=== PATIENT | female | born 1990 | race Caucasian/White ===

== ENCOUNTER 2017-05-30 07:23 | Emergency (ER) | payer OTHER ==
[~2017-05-30] VITALS: Ht 160 cm; Wt 78.9 kg
[~2017-05-30 07:23] MED LIST: ACET500C5 PO; ALBU18HF INHALATION; AZIT250T94 PO; FAMO40TA52 PO; FERR27TA; IBUP-1542 PO; NPH10OT BOTH EARS; PRED20TA PO; PREN-15; PROM5SYR2 PO; PSEU120T11 PO; UDROBDM PO
[2017-05-30 07:26] VITALS: Ht 160 cm; Wt 78.9 kg
--- NOTE | 2017-05-30 08:04 | ERD ---
ER Documentation Chief Complaint Date/Time DATE: 05/30/17 TIME: 08:01 Chief Complaint dizziness and nausea x 2 days HPI 27-year-old female complaining of vomiting 2 days. One is nonbilious and nonbloody. She had 3 episodes yesterday, and 2 episode this morning. She is able to drink water without vomiting. Patient reports feeling shaky last night , thinks that she had a fever. But she did not check her temperature at home. Denies cough or runny nose. Denies abdominal pain, diarrhea, or constipation. Denies any medical histories. ROS All systems reviewed and are negative except as per history of present illness. Medications Home Meds Active Scripts Promethazine HCl/Codeine (Prometh-Codein 6.25-10 mg/5 ml) 5 Ml Syrup, 5 ML PO QID for 5 Days 6 ounceS Prov:MARTY CHRISTY MD 07/12/16 Albuterol Sulfate* (Ventolin HFA*) 18 Gm Hfa.aer.ad, 2 PUFF INHALATION Q4H, #1 INHALER Prov:MARTY CHRISTY MD 07/12/16 Prednisone* (Prednisone*) 20 Mg Tab, 40 MG PO DAILY for 5 Days, TAB Prov:MARTY CHRISTY MD 07/12/16 Azithromycin* (Zithromax*) 250 Mg Tablet, 250 MG PO .ZPACK DIRECTED, #6 TAB TAKE 500 MG (2 TABS) THE FIRST DAY THEN 250 MG (1 TAB) DAYS 2-5 Prov:MARTY CHRISTY MD 07/12/16 Famotidine* (Famotidine*) 40 Mg Tablet, 40 MG PO HS, #20 TAB Prov:MARTY CHRISTY MD 03/17/16 Acetaminophen* (Tylophen*) 500 Mg Capsule, 1 CAP PO Q6H Y for PAIN AND OR ELEVATED TEMP, #16 CAP Prov:MARTY CHRISTY MD 03/17/16 Guaifenesin-Dextromethorphan* (Robitussin* DM) 100MG/10MG/5ML Syrup, 5 ML PO Q6H Y for COUGH, #120 ML 0 Refills Prov:LEONELA CISSE PA-C 10/09/15 Pseudoephedrine Hcl (Sudafe 12-Hour) 120 Mg Tablet.er, 120 MG PO BID Y for CONGESTION, #30 TAB.SA 0 Refills Prov:LEONELA CISSE ESPINOZA 10/09/15 Neomycin/Polymyxin/Hydrocort* (Cortisporin* Otic) 10 Ml Susp, 4 DROP BOTH EARS QID, #1 EA 0 Refills Prov:LEONELA CISSE ESPINOZA 10/09/15 Ibuprofen* (Ibuprofen*) 600 Mg Tablet, 600 MG PO Q6, #14 TAB Prov:MARTY CHRISTY MD 09/28/15 Reported Medications Ferrous Sulfate (Iron) 1 Tab Tablet 07/01/10 Vit/Fe Fumarate/Fa (Prenafirst Tablet) 1 Tab Tablet 07/01/10 Allergies Allergies: Coded Allergies: No Known Drug Allergy (Verified Allergy, Unknown, 03/17/16) Uncoded Allergies: not known alergies (Allergy, Unknown, 07/01/10) PMhx/Soc History of Surgery: No Anesthesia Reaction: No Hx Neurological Disorder: No Hx Respiratory Disorders: Yes (asthma) Hx Cardiac Disorders: No Hx Psychiatric Problems: No Hx Miscellaneous Medical Probl: Yes (on control) Hx Alcohol Use: No Hx Substance Use: No Hx Tobacco Use: No Smoking Status: Never smoker Physical Exam Vitals Vital Signs Date Time Temp Pulse Resp B/P Pulse Ox O2 Delivery O2 Flow Rate FiO2 05/30/17 07:26 98.1 82 18 136/78 99 Physical Exam General: Well-developed, well-nourished, conscious and coherent, in no distress Skin: Warm and dry without rash, good texture and turgor Head: Normocephalic without evidence of trauma Eyes: Sclera and conjunctivae normal; pupils equal, round, and reactive to light; extraocular movements are intact Chest: Normal AP diameter. Good expansion without retractions. Nontender. Lungs are clear to auscultate bilaterally with good tidal volume Heart: Regular rate and rhythm. No murmur, rub, or gallops heard Abdomen: Soft and nontender without masses, guarding, or rebound. Bowel sounds are active. No hepatosplenomegaly Pelvis: Nontender to palpation and stable to compression Extremities: Full range of motion. Good strength bilaterally. No clubbing, cyanosis, or edema. Peripheral pulses are intact. Sensation intact Neuro: Alert and oriented 4, GCS 15. Cranial nerves grossly intact. Motor and sensory exams nonfocal. Moves all extremities. Speech clear. Gait normal Procedures/MDM Appearing 27-year-old female presented to ED with 2 day history of vomiting. Patient is afebrile, does not have any abdominal tenderness on palpation. I doubt acute appendicitis, cholecystitis or other acute abdomen. Patient's symptoms is consistent with viral illness. Patient does not have any active vomiting, is able to maintain by mouth fluid intake. Patient appears well, stable for discharge and outpatient management. Medical decision making shared with patient and family. Education provided to patient and family. Patient and family expressed understanding of the plan. Medications on discharge: None. Follow-up: Primary care provider in 2-3 days or return to ED if worse. Disclaimer: Inadvertent spelling and grammatical errors are likely due to EHR/ dictation software use and do not reflect on the overall quality of patient care. Also, please note that the electronic time recorded on this note does not necessarily reflect the actual time of the patient encounter. Departure Diagnosis: Primary Impression: Vomiting Vomiting type: unspecified Vomiting Intractability: non-intractable Nausea presence: with nausea Qualified Code: R11.2 - Non-intractable vomiting with nausea, unspecified vomiting type Condition: Stable Patient Instructions: Vomiting (6Y-Adult) Additional Instructions: Call your primary care doctor TOMORROW for an appointment during the next 2-3 days.See the doctor sooner or return here if your condition worsens before your appointment time. LM STEPHENS NP May 30, 2017 08:04
== END 2017-05-30 08:24 | disposition home or self-care (01) ==
LOC: FTE 07:23
DX: R11.2 Nausea with vomiting, unspecified (principal); J45.909 Unspecified asthma, uncomplicated
CPT/HCPCS: 99282

== ENCOUNTER 2018-03-14 10:39 | Emergency (ER) | END 2018-03-14 13:51 | disposition home or self-care (01) ==

== ENCOUNTER 2019-05-03 22:44 | Emergency (ER) | payer OTHER ==
[~2019-05-03] VITALS: Ht 154.9 cm; Wt 87.0 kg
[~2019-05-03 22:44] MED LIST changes: +AZIT250T PO; -AZIT250T94 PO; +FAMO40TA5 PO; -FAMO40TA52 PO; +FIORICET PO; +GUAI5SYR2 PO; +ONDA4TAB14 PO; -UDROBDM PO
[2019-05-03 22:49] VITALS: BP 127/68; PULSE 91; RESP 17; Ht 154.9 cm; Wt 87.0 kg
[2019-05-03] MEDS ORDERED: KETOROLAC 30 MG INJ IM STA (23:45)
== END 2019-05-04 00:46 | disposition home or self-care (01) ==
LOC: FTE 22:44
DX: K08.89 Other specified disorders of teeth and supporting structures (principal); J45.909 Unspecified asthma, uncomplicated; Z32.02 Encounter for pregnancy test, result negative
CPT/HCPCS: 81025; 96372; J1885; Z7502